=== PATIENT | female | born 1955 | race Caucasian/White ===

== ENCOUNTER 2017-01-01 16:38 | Observation (INO) | payer OTHER ==
[~2017-01-01] VITALS: Ht 149.9 cm; Wt 80.2 kg
[~2017-01-01 16:38] MED LIST: A & D15 GM TP; ABILIFY20 MG PO; ABILIFY30 MG PO; ACIDOPHILUS1 EAC1 PO; ACYCLOVIR200 M1 PO; ADULT LOW STREN81 M2 PO; ALBUTEROL SULF8.5 GM IH; ALBUTEROL0.63 MG/3 IH; AMLODIPINE BESY10 MG PO; ANAFRANIL25 MG PO; ANALGESIC CREME85 GM TP; ANTIFUNGAL15 G1 TP; ASPIR-LOW81 MG PO; ATROVENT 00.5 MG/2.5 IH; B-12250 MCG PO; BACTRIM,SEPT1 TABLET PO; BENTYL10 MG PO; CARMOL 2085 GM; CITALOPRAM HBR40 M1 PO; CITALOPRAM HBR40 MG PO; COLACE100 MG PO; CRESTOR40 MG PO; DAYTRANA1 EACH; DILAUDID2 MG PO; DIOVAN320 MG PO; DITROPAN XL5 MG PO; DOCUSATE CALCI240 MG PO; EFFEXOR75 MG; FLUNISOLIDE25 M1 NS; FLUVOXAMINE MAL25 MG PO; HYDROCIL INSTA1 EAC1 PO; HYDROXYZINE HCL25 MG PO; HYDROXYZINE PAM25 MG PO; IPRATROPIU0.2 MG/1 M IH; K-DUR10 ME1 PO; K-DUR10 MEQ PO; K-DUR20 MEQ PO; K-TAB10 MEQ PO; KEFLEX500 MG PO; LASIX10 MG PO; LASIX20 MG PO; LASIX40 MG PO; LIPITOR40 MG PO; LOPRESSOR50 MG PO; LYRICA100 MG PO; LYRICA150 MG; MACROBID100 MG PO; METOLAZONE2.5 MG PO; MICRO-K10 ME1 PO; MOBIC15 MG PO; Micro-K,K-Tab,K-Dur, PO; NEURONTIN300 MG PO; NORVASC10 MG PO; ONE-A-DAY WOME1 EAC1; PAIN RELIEVER500 MG PO; PERCOCET 5/31 TABLET PO; POLYETHYLENE MC; PRILOSEC20 MG PO; PROVENTIL,2.5 MG/3 M IH; PSYLLIUM390 GM PO; RISPERDAL4 MG PO; SILVADENE20 GM TP; SIMVASTATIN80 M1 PO; SPIRONOLACTONE25 MG PO; TOPAMAX200 MG PO; TRAMADOL HCL50 MG PO; TYLENOL WITH C1 EACH PO; ULTRAM50 MG PO; UREA85 GM TP; ZANTAC150 MG PO; ZAROXOLYN2.5 MG PO; ZOFRAN4 MG PO; [UNRECOGNIZED DRUG - CODE] TP
[2017-01-01 17:39] LABS: HEMATOCRIT 41.8 % (36.0-46.0); MCH 29.8 PG (29.0-34.0); MCHC 31.8 G/DL (30.0-36.0); MCV 93.7 FL (83-99); MEAN PLAT.VOLUME 10.8 uM^3 (9.5-12.4); PLATELET COUNT 195 K/uL (156-360); RBC DIS.WIDTH-CV 12.8 % (11.8-14.6); RBC DIS.WIDTH-SD 43.7 % (39-53); RED BLOOD COUNT 4.46 M/uL (3.80-5.20); WHITE BLOOD COUNT 7.9 K/uL (4.1-10.2)
[2017-01-01 17:48] LABS: CHLORIDE 111 mEq/L (99-109); POTASSIUM 4.1 mEq/L (3.7-5.4); SODIUM 141 mEq/L (136-147)
[2017-01-01 17:50] LABS: GLUCOSE 84 mg/dL (70-99)
[2017-01-01 17:51] LABS: ANION GAP 9 MEQ/L (2-14)
[2017-01-01 17:54] LABS: GFR ESTIMATE (CALCULATED) 38 mL/min/
[2017-01-01 17:55] LABS: UREA NITROGEN (BUN) 18 mg/dL (9-23)
[2017-01-01 18:01] LABS: TROP-I INTERPRETATION NEGATIVE; TROPONIN-I < 0.01 ng/mL (0.0-0.30)
[2017-01-01] MEDS ORDERED: VENLAFAXINE HCL75 M3 PO (19:09)
[2017-01-01] MEDS ORDERED: VALSARTAN320 MG PO (19:12)
[2017-01-01] MEDS ORDERED: SPIRONOLACTONE25 MG PO (19:13)
[2017-01-01] MEDS ORDERED: TRAMADOL HCL50 MG PO (19:13)
[2017-01-01] MEDS ORDERED: TOPAMAX200 MG PO (19:13)
[2017-01-01] MEDS ORDERED: CLONAZEPAM0.5 MG PO (19:13)
[2017-01-01] MEDS ORDERED: SALINE NASAL SP45 ML BOTH NARES (19:13)
[2017-01-01] MEDS ORDERED: TRAZODONE HCL50 MG PO (19:14)
[2017-01-01] MEDS ORDERED: LINZESS290 MCG PO (19:14)
[2017-01-01] MEDS ORDERED: KLOR-CON 1010 ME1 PO (19:14)
[2017-01-01] MEDS ORDERED: TYLENOL REGULA325 MG PO (19:14)
[2017-01-01] MEDS ORDERED: [UNRECOGNIZED DRUG - OTHER] PO (19:16)
[2017-01-01] MEDS ORDERED: OMEPRAZOLE20 MG PO (19:16)
[2017-01-01] MEDS ORDERED: MIRALAX255 GM PO ×2 (19:16)
[2017-01-01] MEDS ORDERED: ARTIFICIAL TEAR15 M1 BOTH EYES (19:17)
[2017-01-01] MEDS ORDERED: ASCORBIC ACID500 M3 PO (19:17)
[2017-01-01] MEDS ORDERED: VITAMIN B-12500 MC5 PO (19:17)
[2017-01-01] MEDS ORDERED: LO-DOSE ASPIRIN81 M2 PO (19:18)
[2017-01-01] MEDS ORDERED: FUROSEMIDE40 MG PO (19:18)
[2017-01-01] MEDS ORDERED: COLACE100 MG PO (19:18)
[2017-01-01] MEDS ORDERED: ATORVASTATIN CA80 MG PO (19:18)
[2017-01-01] MEDS ORDERED: DULCOLAX5 MG PO (19:18)
[2017-01-01] MEDS ORDERED: VITAMIN D31000 UNIT PO (19:19)
[2017-01-01] MEDS ORDERED: CALCIUM POLYCA625 MG PO (19:19)
[2017-01-01] MEDS ORDERED: CAL-CITRATE PL1 EACH PO (19:19)
[2017-01-01] MEDS ORDERED: GABAPENTIN400 MG PO (19:19)
[2017-01-01] MEDS ORDERED: CLARITIN,ALAVAR10 MG PO (19:20)
[2017-01-01] MEDS ORDERED: CORTIZONE-1028 GM TP (19:20)
[2017-01-01] MEDS ORDERED: ZADITOR 0.100 DROP/5 BOTH EYES (19:20)
[2017-01-01] MEDS ORDERED: LAC-DOSE3000 UNIT PO (19:21)
[2017-01-01] MEDS ORDERED: ONE-A-DAY ESSE1 EAC1 PO (19:21)
[2017-01-01] MEDS ORDERED: ACIDOPHILUS1 EAC1 PO (19:21)
[2017-01-01] MEDS ORDERED: METOPROLOL TART50 MG PO (19:21)
[2017-01-01 20:33] LABS: ADD MIUA? YES; BILIRUBIN NEGATIVE; BLOOD NEGATIVE; COLOR YELLOW ((YELLOW)); GLUCOSE (STRIP) NEGATIVE; KETONES NEGATIVE; LEUKOCYTES LARGE; NITRITE NEGATIVE; PROTEIN (STRIP) NEGATIVE; SPECIFIC GRAVITY 1.016 (1.000-1.030); UROBILINOGEN 0.2 MG/DL (0.2-1.0)
[2017-01-01 20:36] LABS: BACTERIA RARE /HPF; EPITHELIAL CELLS 1+ /HPF; HYALINE CASTS 20-30 /LPF; MUCUS TRACE /LPF; RED BLOOD CELLS 0-5 /HPF (0-5); WHITE BLOOD CELLS 15-20 /HPF (0-5)
[2017-01-01 20:45] VITALS: BP 135/65
[2017-01-01 23:23] LABS: METH RESISTANT S AUREUS PCR NEGATIVE (NEGATIVE)
[2017-01-01 23:34] LABS: TROP-I INTERPRETATION NEGATIVE; TROPONIN-I < 0.01 ng/mL (0.0-0.30)
[2017-01-01 23:52] VITALS: BP 95/52
[2017-01-02 00:01] LABS: PROBE CHECK PASS; SPECIMEN PROCESSING CONTROL PASS
[2017-01-02 04:04] VITALS: BP 11/62
[2017-01-02 05:56] LABS: TROP-I INTERPRETATION NEGATIVE; TROPONIN-I < 0.01 ng/mL (0.0-0.30)
[2017-01-02 06:45] LABS: HDL CHOLESTEROL 46 MG/DL (Desirable>=50); LDL CHOLESTEROL 63 mg/dL (Desirable<100); NON-HDL CHOLESTEROL 71 mg/dL (Desirable<160); TOTAL CHOLESTEROL 117 mg/dL (Desirable<200); TRIGLYCERIDES 42 MG/DL (Normal: <150)
[2017-01-02 08:30] LABS: ANION GAP 6 MEQ/L (2-14); CHLORIDE 112 MEQ/L (99-109); POTASSIUM 4.3 MEQ/L (3.7-5.4); SODIUM 143 MEQ/L (136-147); TOTAL BILIRUBIN 0.2 MG/DL (0.0-1.0)
[2017-01-02 08:35] LABS: ALKALINE PHOSPHATASE 106 IU/L (3-129); GFR ESTIMATE (CALCULATED) 44 mL/min/; GLUCOSE 74 mg/dL (70-99); UREA NITROGEN (BUN) 20 mg/dL (9-23)
[2017-01-02 09:22] LABS: D-DIMER ELISA 0.31 mg/L FEU (< 0.57)
[2017-01-02 09:58] VITALS: BP 110/55
== END 2017-01-02 11:05 | disposition home or self-care (01) ==
LOC: EME 16:38 → 5WEST 19:44 → EDOF 19:44 → 5WEST 20:39
PROVIDERS: Hospitalist; Physician Assistant; Physician Assistant Medical
DX: R07.89 Other chest pain (principal); R94.31 Abnormal electrocardiogram [ECG] [EKG]; I13.0 Hypertensive heart and chronic kidney disease with heart failure and stage 1 through stage 4 chronic kidney disease, or unspecified chronic kidney disease; I50.9 Heart failure, unspecified; N18.3 Chronic kidney disease, stage 3 (moderate); E78.5 Hyperlipidemia, unspecified; I44.7 Left bundle-branch block, unspecified; I35.0 Nonrheumatic aortic (valve) stenosis; Z87.891 Personal history of nicotine dependence; K59.09 Other constipation; N39.46 Mixed incontinence; E66.9 Obesity, unspecified; Z68.35 Body mass index [BMI] 35.0-35.9, adult; F41.9 Anxiety disorder, unspecified; F32.9 Major depressive disorder, single episode, unspecified
CPT/HCPCS: 71020; 80048; 80053; 80061; 81003; 84484; 85027; 85379; 87641; 93005; 99281; 99284; G0378; J1650

== ENCOUNTER 2017-04-14 02:59 | Emergency (ER) | payer OTHER ==
[~2017-04-14] VITALS: Ht 149.9 cm; Wt 78.1 kg
[~2017-04-14 02:59] MED LIST changes: +ARTIFICIAL TEAR15 M1 BOTH EYES; +ASCORBIC ACID500 M3 PO; +ATORVASTATIN CA80 MG PO; +CAL-CITRATE PL1 EACH PO; +CALCIUM POLYCA625 MG PO; +CLARITIN,ALAVAR10 MG PO; +CLONAZEPAM0.5 MG PO; +CORTIZONE-1028 GM TP; +DULCOLAX5 MG PO; +FUROSEMIDE40 MG PO; +GABAPENTIN400 MG PO; +KLOR-CON 1010 ME1 PO; +LAC-DOSE3000 UNIT PO; +LINZESS290 MCG PO; +LO-DOSE ASPIRIN81 M2 PO; +METOPROLOL TART50 MG PO; +MIRALAX255 GM PO; +OMEPRAZOLE20 MG PO; +ONE-A-DAY ESSE1 EAC1 PO; +SALINE NASAL SP45 ML BOTH NARES; +TRAZODONE HCL50 MG PO; +TYLENOL REGULA325 MG PO; +VALSARTAN320 MG PO; +VENLAFAXINE HCL75 M3 PO; +VITAMIN B-12500 MC5 PO; +VITAMIN D31000 UNIT PO; +ZADITOR 0.100 DROP/5 BOTH EYES; +[UNRECOGNIZED DRUG - OTHER] PO
[2017-04-14 03:48] LABS: EOSINOPHIL (%) 0 % (0-5); HEMATOCRIT 39.7 % (36.0-46.0); IMMATURE GRANULOCYTE (%) 0.9 % (0.0-0.7); IMMATURE GRANULOCYTE COUNT 0.1 K/uL; INSTRUMENT ABS NEUTROPHIL CT 12.2 K/uL; LYMPHOCYTE COUNT 2.8 K/uL (1.0-2.8); MCH 30.3 PG (29.0-34.0); MCV 91.9 FL (83-99); MEAN PLAT.VOLUME 10.3 uM^3 (9.5-12.4); MONOCYTE (%) 6.3 % (3-12); NEUTROPHIL (%) 75.5 % (45-76); NEUTROPHIL COUNT 12.2 K/uL (1.8-6.4); PLATELET COUNT 240 K/uL (156-360); RBC DIS.WIDTH-CV 12.8 % (11.8-14.6); RBC DIS.WIDTH-SD 43.2 % (39-53); RED BLOOD COUNT 4.32 M/uL (3.80-5.20); WHITE BLOOD COUNT 16.2 K/uL (4.1-10.2)
[2017-04-14 04:08] LABS: CHLORIDE 113 mEq/L (99-109); POTASSIUM 3.7 mEq/L (3.7-5.4); SODIUM 142 mEq/L (136-147)
[2017-04-14 04:09] LABS: GLUCOSE 102 mg/dL (70-99)
[2017-04-14 04:11] LABS: ANION GAP 7 MEQ/L (2-14)
[2017-04-14 04:13] LABS: GFR ESTIMATE (CALCULATED) > 59 mL/min/
[2017-04-14 04:14] LABS: UREA NITROGEN (BUN) 26 mg/dL (9-23)
[2017-04-14] MEDS ORDERED: PEPCID20 MG PO (05:19)
[2017-04-14 05:21] VITALS: BP 176/84
== END 2017-04-14 05:24 | disposition home or self-care (01) ==
LOC: EME 02:59
PROVIDERS: Emergency Medicine
DX: L23.9 Allergic contact dermatitis, unspecified cause (principal); J44.9 Chronic obstructive pulmonary disease, unspecified
CPT/HCPCS: 80048; 85025; 99281; 99285; J1100; J1200; J7030; S0028

== ENCOUNTER 2017-05-07 22:28 | Emergency (ER) | payer OTHER ==
[~2017-05-07] VITALS: Ht 149.9 cm; Wt 80.9 kg
[~2017-05-07 22:28] MED LIST changes: +PEPCID20 MG PO
[2017-05-08] MEDS ORDERED: TYLENOL WITH C1 EACH PO (01:05)
[2017-05-08] MEDS ORDERED: FLEXERIL10 MG PO (01:05)
[2017-05-08] MEDS ORDERED: MOTRIN600 MG PO (01:06)
[2017-05-08 01:30] VITALS: BP 111/56
== END 2017-05-08 01:30 | disposition home or self-care (01) ==
LOC: EME 22:28
DX: M54.5 Low back pain (principal); W18.30XA Fall on same level, unspecified, initial encounter; I11.0 Hypertensive heart disease with heart failure; I50.9 Heart failure, unspecified; K21.9 Gastro-esophageal reflux disease without esophagitis; M79.7 Fibromyalgia; F41.9 Anxiety disorder, unspecified; F32.9 Major depressive disorder, single episode, unspecified; Z79.82 Long term (current) use of aspirin; Z88.0 Allergy status to penicillin; Z88.8 Allergy status to other drugs, medicaments and biological substances
CPT/HCPCS: 72128; 72131; 93005; 99281; 99284; J1885

== ENCOUNTER 2017-06-23 18:29 | Observation (INO) | payer OTHER ==
[~2017-06-23] VITALS: Ht 149.9 cm; Wt 80.8 kg
[~2017-06-23 18:29] MED LIST changes: +FLEXERIL10 MG PO; -FUROSEMIDE40 MG PO; +MOTRIN600 MG PO
[2017-06-23 19:10] LABS: BASOPHIL COUNT 0.1 K/uL (0-0.1); EOSINOPHIL (%) 0.1 % (0-5); HEMATOCRIT 43.2 % (36.0-46.0); IMMATURE GRANULOCYTE (%) 0.9 % (0.0-0.7); IMMATURE GRANULOCYTE COUNT 0.1 K/uL; INSTRUMENT ABS NEUTROPHIL CT 5.1 K/uL; LYMPHOCYTE COUNT 2.9 K/uL (1.0-2.8); MCH 30.3 PG (29.0-34.0); MCHC 30.6 G/DL (30.0-36.0); MCV 99.1 FL (83-99); MEAN PLAT.VOLUME 10.6 uM^3 (9.5-12.4); MONOCYTE (%) 9.2 % (3-12); MONOCYTE COUNT 0.8 K/uL (0-0.8); NEUTROPHIL (%) 56.6 % (45-76); NEUTROPHIL COUNT 5.1 K/uL (1.8-6.4); PLATELET COUNT 235 K/uL (156-360); RBC DIS.WIDTH-SD 47.4 % (39-53); RED BLOOD COUNT 4.36 M/uL (3.80-5.20)
[2017-06-23 19:18] LABS: CHLORIDE 113 mEq/L (99-109); POTASSIUM 4.4 mEq/L (3.7-5.4); SODIUM 141 mEq/L (136-147)
[2017-06-23 19:19] LABS: MAGNESIUM 2.4 mg/dL (1.3-2.7)
[2017-06-23 19:21] LABS: GLUCOSE 89 mg/dL (70-99)
[2017-06-23 19:22] LABS: ANION GAP 6 MEQ/L (2-14)
[2017-06-23 19:23] LABS: TOTAL BILIRUBIN 0.2 mg/dL (0.0-1.0)
[2017-06-23 19:24] LABS: ALKALINE PHOSPHATASE 103 IU/L (3-129)
[2017-06-23 19:25] LABS: GFR ESTIMATE (CALCULATED) 38 mL/min/
[2017-06-23 19:26] LABS: UREA NITROGEN (BUN) 24 mg/dL (9-23)
[2017-06-23 19:28] LABS: CREATINE KINASE 43 IU/L (1-294); TOTAL CK 43 IU/L (1-294)
[2017-06-23 19:31] LABS: TROP-I INTERPRETATION NEGATIVE; TROPONIN-I < 0.01 ng/mL (0.0-0.30)
[2017-06-23 19:33] LABS: CK-MB 0.8 ng/mL (0.0-4.9)
[2017-06-23 20:01] LABS: ADD MIUA? YES; BILIRUBIN NEGATIVE; BLOOD NEGATIVE; COLOR YELLOW ((YELLOW)); GLUCOSE (STRIP) NEGATIVE; KETONES NEGATIVE; LEUKOCYTES LARGE; NITRITE NEGATIVE; PROTEIN (STRIP) NEGATIVE; SPECIFIC GRAVITY 1.018 (1.000-1.030); UROBILINOGEN 0.2 MG/DL (0.2-1.0)
[2017-06-23 20:07] LABS: BACTERIA RARE /HPF; EPITHELIAL CELLS RARE /HPF; HYALINE CASTS TNTC /LPF; MUCUS TRACE /LPF; RED BLOOD CELLS NONE SEEN /HPF (0-5); UCUL ADDED? YES
[2017-06-23 21:59] LABS: D-DIMER ELISA < 150.00 ng/mLDDU (<230)
[2017-06-23 22:38] VITALS: BP 130/63
[2017-06-23] MEDS ORDERED: ZYRTEC5 MG PO (22:54)
[2017-06-23] MEDS ORDERED: PROAIR RESPICL90 MCG IH (22:57)
[2017-06-23] MEDS ORDERED: UREA85 GM TP (22:59)
[2017-06-23] MEDS ORDERED: PEPCID20 MG PO (23:01)
[2017-06-23] MEDS ORDERED: CALCIUM CITRAT200 MG PO (23:05)
[2017-06-23] MEDS ORDERED: ERGOCALCIF50000 UNIT PO (23:07)
[2017-06-23] MEDS ORDERED: EUCERIN CREME57 GM TP (23:07)
[2017-06-23] MEDS ORDERED: TOPROL XL25 MG PO (23:11)
[2017-06-23] MEDS ORDERED: NITROGLYCERIN0.4 MG SL (23:13)
[2017-06-24 02:12] LABS: TROP-I INTERPRETATION NEGATIVE; TROPONIN-I < 0.01 ng/mL (0.0-0.30)
[2017-06-24 03:52] VITALS: BP 104/57
[2017-06-24 08:40] VITALS: BP 100/56
[2017-06-24 08:45] LABS: HEMATOCRIT 37.1 % (36.0-46.0); MCH 30.6 PG (29.0-34.0); MCHC 30.7 G/DL (30.0-36.0); MCV 99.5 FL (83-99); MEAN PLAT.VOLUME 10.9 uM^3 (9.5-12.4); PLATELET COUNT 175 K/uL (156-360); RBC DIS.WIDTH-SD 47.5 % (39-53); RED BLOOD COUNT 3.73 M/uL (3.80-5.20); WHITE BLOOD COUNT 6.9 K/uL (4.1-10.2)
[2017-06-24 09:11] LABS: ALKALINE PHOSPHATASE 80 IU/L (3-129); ANION GAP 4 MEQ/L (2-14); CHLORIDE 112 MEQ/L (99-109); GFR ESTIMATE (CALCULATED) 49 mL/min/; GLUCOSE 88 mg/dL (70-99); POTASSIUM 4.6 MEQ/L (3.7-5.4); SAMPLE HEMOLYSIS CHECK 0; SAMPLE ICTERIC CHECK 0; SAMPLE LIPEMIA CHECK 0; SODIUM 142 MEQ/L (136-147); TOTAL BILIRUBIN 0.4 MG/DL (0.0-1.0); UREA NITROGEN (BUN) 25 mg/dL (9-23)
[2017-06-24 09:27] LABS: TROP-I INTERPRETATION NEGATIVE; TROPONIN-I < 0.01 ng/mL (0.0-0.30)
[2017-06-24 11:34] VITALS: BP 120/59
[2017-06-24] MEDS ORDERED: NITROFURANTOIN100 M3 PO (11:59)
[2017-06-24] MEDS ORDERED: ATORVASTATIN CA80 MG PO (11:59)
[2017-06-25] MEDS ORDERED: MACROBID100 MG PO (12:23)
[2017-06-25] MEDS ORDERED: ATORVASTATIN CA80 MG PO (12:23)
== END 2017-06-24 14:06 | disposition home or self-care (01) ==
LOC: EME 18:29 → 5WEST 21:35 → EDOF 21:35 → ENRESERV 21:36 → 5WEST 22:12
PROVIDERS: Emergency Medicine; Internal Medicine
DX: R07.9 Chest pain, unspecified (principal); R68.84 Jaw pain; H53.8 Other visual disturbances; R42 Dizziness and giddiness; I12.9 Hypertensive chronic kidney disease with stage 1 through stage 4 chronic kidney disease, or unspecified chronic kidney disease; N18.3 Chronic kidney disease, stage 3 (moderate); I44.7 Left bundle-branch block, unspecified; I35.0 Nonrheumatic aortic (valve) stenosis; N39.0 Urinary tract infection, site not specified; E78.5 Hyperlipidemia, unspecified; F41.9 Anxiety disorder, unspecified; F32.9 Major depressive disorder, single episode, unspecified; Z98.84 Bariatric surgery status; Z90.49 Acquired absence of other specified parts of digestive tract; Z87.891 Personal history of nicotine dependence; Z79.82 Long term (current) use of aspirin; Z88.0 Allergy status to penicillin; Z91.09 Other allergy status, other than to drugs and biological substances; Z88.8 Allergy status to other drugs, medicaments and biological substances; Z88.1 Allergy status to other antibiotic agents
CPT/HCPCS: 71020; 80053; 81003; 82550; 82553; 83735; 83880; 84484; 85025; 85027; 85379; 87086; 93005; 94760; 94799; 99202; 99281; 99285; G0378; J1644

== ENCOUNTER 2017-09-14 18:55 | Observation (INO) | payer OTHER ==
[~2017-09-14] VITALS: Ht 149.9 cm; Wt 81.7 kg
[~2017-09-14 18:55] MED LIST changes: +CALCIUM CITRAT200 MG PO; +ERGOCALCIF50000 UNIT PO; +EUCERIN CREME57 GM TP; +NITROFURANTOIN100 M3 PO; +NITROGLYCERIN0.4 MG SL; +PROAIR RESPICL90 MCG IH; +TOPROL XL50 MG PO; +ZYRTEC5 MG PO
[2017-09-14 20:22] LABS: BASOPHIL (%) 0.6 % (0-1); EOSINOPHIL (%) 0.3 % (0-5); HEMATOCRIT 38.5 % (36.0-46.0); HEMOGLOBIN 12.3 G/DL (11.9-15.5); IMMATURE GRANULOCYTE (%) 0.6 % (0.0-0.7); LYMPHOCYTE (%) 37.8 % (15-42); LYMPHOCYTE COUNT 2.7 K/uL (1.0-2.8); MCH 30.5 PG (29.0-34.0); MCHC 31.9 G/DL (30.0-36.0); MCV 95.5 FL (83-99); MONOCYTE (%) 10.3 % (3-12); MONOCYTE COUNT 0.8 K/uL (0-0.8); NEUTROPHIL (%) 50.4 % (45-76); NEUTROPHIL COUNT 3.7 K/uL (1.8-6.4); PLATELET COUNT 175 K/uL (156-360); RBC DIS.WIDTH-CV 12.5 % (11.8-14.6); RBC DIS.WIDTH-SD 43.5 % (39-53); RED BLOOD COUNT 4.03 M/uL (3.80-5.20); WHITE BLOOD COUNT 7.3 K/uL (4.1-10.2)
[2017-09-14 20:27] LABS: INTER. NORMALIZED RATIO 0.9
[2017-09-14 20:30] LABS: PTT 29.1 SEC (25-37)
[2017-09-14 20:33] LABS: CHLORIDE 111 mEq/L (99-109); POTASSIUM 4.2 mEq/L (3.7-5.4); SODIUM 143 mEq/L (136-147)
[2017-09-14 20:35] LABS: GLUCOSE 93 mg/dL (70-99)
[2017-09-14 20:39] LABS: CREATININE 1.1 mg/dL (0.6-1.3); GFR ESTIMATE (CALCULATED) 54 mL/min/; UREA NITROGEN (BUN) 23 mg/dL (9-23)
[2017-09-14 20:42] LABS: TROP-I INTERPRETATION NEGATIVE; TROPONIN-I < 0.01 ng/mL (0.0-0.30)
[2017-09-14] MEDS ORDERED: VITAMIN D31000 UNI2 PO (23:33)
[2017-09-14] MEDS ORDERED: CYCLOBENZAPRINE10 MG PO (23:47)
[2017-09-15] MEDS ORDERED: ALENDRONAT70 MG/75 M PO
[2017-09-15 00:18] LABS: ALBUMIN 3.5 g/dL (3.2-4.8)
[2017-09-15 00:21] LABS: TOTAL PROTEIN 5.7 g/dL (6.4-8.3)
[2017-09-15 00:23] LABS: TOTAL BILIRUBIN 0.1 mg/dL (0.0-1.0)
[2017-09-15 00:24] LABS: ALKALINE PHOSPHATASE 101 IU/L (3-129)
[2017-09-15 00:26] LABS: AST (GOT) 14 IU/L (2-34); DIRECT BILIRUBIN 0.1 mg/dL (0.0-0.3)
[2017-09-15 00:27] LABS: ALT (GPT) 12 IU/L (3-49)
[2017-09-15 01:13] VITALS: BP 138/78
[2017-09-15 01:19] LABS: LIPASE 23 U/L (1.0-51.0)
[2017-09-15 02:33] LABS: TROP-I INTERPRETATION NEGATIVE; TROPONIN-I < 0.01 ng/mL (0.0-0.30)
[2017-09-15 06:15] LABS: HEMATOCRIT 37.7 % (36.0-46.0); MCH 30.7 PG (29.0-34.0); MCHC 31.8 G/DL (30.0-36.0); MCV 96.4 FL (83-99); NRBC (%) 0.4 /100 WBC (0-0); PLATELET COUNT 168 K/uL (156-360); RBC DIS.WIDTH-CV 12.8 % (11.8-14.6); RBC DIS.WIDTH-SD 45.3 % (39-53); RED BLOOD COUNT 3.91 M/uL (3.80-5.20); WHITE BLOOD COUNT 5.3 K/uL (4.1-10.2)
[2017-09-15 06:37] LABS: TROP-I INTERPRETATION NEGATIVE; TROPONIN-I 0.01 ng/mL (0.0-0.30)
[2017-09-15 06:43] LABS: CHLORIDE 112 MEQ/L (99-109); GFR ESTIMATE (CALCULATED) > 59 mL/min/; GLUCOSE 88 mg/dL (70-99); POTASSIUM 4.6 MEQ/L (3.7-5.4); SODIUM 142 MEQ/L (136-147); UREA NITROGEN (BUN) 19 mg/dL (9-23)
[2017-09-15 08:11] VITALS: BP 142/71
[2017-09-15 11:21] VITALS: BP 130/67
[2017-09-15 12:16] LABS: TROP-I INTERPRETATION NEGATIVE; TROPONIN-I < 0.01 ng/mL (0.0-0.30)
== END 2017-09-15 14:07 | disposition home or self-care (01) ==
LOC: EME 18:55 → EDOF 23:35 → ENRESERV 23:35 → 5WEST 23:35 → EDOF 23:35 → ENRESERV 23:42 → 5WEST 09-15 01:00
PROVIDERS: Emergency Medicine; Nurse Practitioner Adult Health; Nurse Practitioner Family
DX: R07.9 Chest pain, unspecified (principal); I11.0 Hypertensive heart disease with heart failure; I50.9 Heart failure, unspecified; R94.31 Abnormal electrocardiogram [ECG] [EKG]; I44.7 Left bundle-branch block, unspecified; K21.9 Gastro-esophageal reflux disease without esophagitis; E66.9 Obesity, unspecified; Z68.36 Body mass index [BMI] 36.0-36.9, adult; Z98.84 Bariatric surgery status; E78.5 Hyperlipidemia, unspecified; Z79.82 Long term (current) use of aspirin; Z90.49 Acquired absence of other specified parts of digestive tract; R68.84 Jaw pain; M25.512 Pain in left shoulder; F41.9 Anxiety disorder, unspecified; F32.9 Major depressive disorder, single episode, unspecified; Z88.0 Allergy status to penicillin; Z88.6 Allergy status to analgesic agent; Z88.1 Allergy status to other antibiotic agents; Z88.8 Allergy status to other drugs, medicaments and biological substances; Z91.048 Other nonmedicinal substance allergy status
CPT/HCPCS: 70450; 71046; 71275; 73030; 80048; 80076; 83690; 83880; 84484; 85025; 85027; 85610; 85730; 93005; 99281; 99285; G0378; J3010